=== PATIENT | female | born 1995 | race Caucasian/White ===

== ENCOUNTER 2017-05-25 18:04 | Emergency (ER) | payer BC ==
[2017-05-25 18:27] VITALS: BP 128/89
--- NOTE | 2017-05-25 19:19 | EDM.PDOC ---
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 Last menstrual period was 04/20/2017 and had taken a test which she states was positive. She went to [facility] today to address the vaginal bleeding, they told her to come to [facility] did not have ultrasound capabilities. She has not seen a BALANCE BRIDGE INSPECTOR to confirm either through lab or ultrasound. Stated this morning she noticed light bleeding when she wiped after using the bathroom which since has become more heavy and darker blood. She denies any abdominal pain, cramping, nausea, vomiting or diarrhea. 1 para 1 Review of systems: As per history of present illness and below otherwise all systems reviewed and negative. Past medical history: As per history of present illness and as reviewed below otherwise noncontributory. Surgical history: As per history of present illness and as reviewed below otherwise noncontributory. Social history: No reported history of drug or alcohol abuse. Family history: As per history of present illness and as reviewed below otherwise noncontributory. Physical exam: Gen.: Well-developed and well-nourished 21-year-old female. Appears in no acute distress. Alert and oriented. HEENT: Atraumatic, normocephalic, pupils reactive, negative for conjunctival pallor or scleral icterus, mucous membranes moist, throat clear, neck supple, nontender, trachea midline. Lungs: Clear to auscultation, breath sounds equal bilaterally, chest nontender. Heart: S1S2, regular, negative for clicks, rubs, or JVD. Abdomen: Soft, nondistended, nontender. Negative for masses or hepatosplenomegaly. Negative for costovertebral tenderness. Pelvis: Stable nontender. Genitourinary: Deferred. Rectal: Deferred. Extremities: Atraumatic, negative for cords or calf pain. Neurovascular unremarkable. Neuro: Awake, alert, oriented. Cranial nerves II through XII unremarkable. Cerebellum unremarkable. Motor and sensory unremarkable throughout. Exam nonfocal. Diagnostics: UA, [employer]: [] Impression: Dysfunctional uterine bleeding Plan: 1. The test that was done today was negative. Your previous home test could have been a false positive. It is likely that the bleeding you are experiencing today is the start of your regular menstrual period. As we discussed please follow-up with your regular BALANCE BRIDGE INSPECTOR if you continue to experience any other symptoms. 2. Return to the ED as needed and as discussed. Definitive disposition and diagnosis as appropriate pending reevaluation and review of above. Onset: Today Duration: Hour(s): - Related Data Allergies Allergy/AdvReac Type Severity Reaction Status Date / Time No Known Allergies Allergy Verified 05/25/17 18:22 Home Meds: Home Meds FLUoxetine HCl [Prozac] 10 mg PO DAILY 05/25/17 [History] Past Medical History - Past Health History Medical/Surgical History: Denies Medical/Surgical History Social & Family History - Family History Family Medical History: Noncontributory - Tobacco Use Smoking Status *Q: Never Smoker Second Hand Smoke Exposure: No - Recreational Drug Use Recreational Drug Use: No ED ROS GENERAL - Review of Systems Review Of Systems: ROS reveals no pertinent complaints other than HPI. ED EXAM, GI/ABD - Physical Exam Exam: See Below (See dictation) Course - Vital Signs Last Recorded V/S: Last Vital Signs Temp 98.6 F 05/25/17 18:23 Pulse 80 05/25/17 18:23 Resp 18 05/25/17 18:23 BP 128/89 05/25/17 18:23 Pulse Ox 98 05/25/17 18:23 - Orders/Labs/Meds Labs: Laboratory Tests 05/25/17 05/25/17 Range/Units 18:15 18:15 Urine Color YELLOW Urine Appearance CLEAR Urine pH 5.5 (5.0-8.0) Ur Specific [place] >= 1.030 (1.001-1.035) Urine Protein NEGATIVE (NEGATIVE) mg/dL Urine Glucose (UA) NEGATIVE (NEGATIVE) mg/dL Urine Ketones NEGATIVE (NEGATIVE) mg/dL Urine Occult Blood LARGE H (NEGATIVE) Urine Nitrite NEGATIVE (NEGATIVE) Urine Bilirubin NEGATIVE (NEGATIVE) Urine Urobilinogen 0.2 (<2.0) EU/dL Ur Leukocyte Esterase NEGATIVE (NEGATIVE) Urine RBC 1-2 (0-2/HPF) Urine WBC 1-3 (0-5/HPF) Ur Epithelial Cells FEW (NONE-FEW) Amorphous Sediment FEW (NEGATIVE) Urine Bacteria FEW (NEGATIVE) Urine HCG, Qual NEGATIVE (NEGATIVE) Departure - Departure Time of Disposition: 19:19 Disposition: Home, Self-Care 01 Clinical Impression: Dysfunctional uterine bleeding - Discharge Information Referrals: PCP,None [Primary Care Provider] - Additional Instructions: My general discharge The following information is given to patients seen in the emergency department who are being discharged to home. This information is to outline your options for follow-up care. We provide all patients seen in our emergency department with a follow-up referral. The need for follow-up, as well as the timing and circumstances, are variable depending upon the specifics of your emergency department visit. If you don't have a primary care physician on staff, we will provide you with a referral. We always advise you to contact your personal physician following an emergency department visit to inform them of the circumstance of the visit and for follow-up with them and/or the need for any referrals to a consulting specialist. The emergency department will also refer you to a specialist when appropriate. This referral assures that you have the opportunity for follow-up care with a specialist. All of these measure are taken in an effort to provide you with optimal care, which includes your follow-up. Under all circumstances we always encourage you to contact your private physician who remains a resource for coordinating your care. When calling for follow-up care, please make the office aware that this follow-up is from your recent emergency room visit. If for any reason you are refused follow-up, please contact the [facility] Emergency Department at and asked to speak to the emergency department charge nurse. [facility] [address] [place] [id number] 1. The test that was done today was negative. Your previous home test could have been a false positive. It is likely that the bleeding you are experiencing today is the start of your regular menstrual period. As we discussed please follow-up with your regular BALANCE BRIDGE INSPECTOR if you continue to experience any other symptoms. 2. Return to the ED as needed and as discussed.
== END 2017-05-25 19:37 | disposition home or self-care (01) ==
LOC: MW.ED 18:04
DX: N93.8 Other specified abnormal uterine and vaginal bleeding (principal); Z79.899 Other long term (current) drug therapy
CPT/HCPCS: 81001; 81025; 99283; 99284